=== PATIENT | female | born 1960 | race Caucasian/White ===

== ENCOUNTER 2019-04-23 14:33 | Emergency (ER) | payer OTHER ==
[2019-04-23 14:47] VITALS: BMI 23.3
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
[2019-04-23 18:59] VITALS: BP 152/98; PULSE 86; TEMP 98.1
== END 2019-04-23 19:03 | disposition home or self-care (01) ==
LOC: JER 14:33
DX: M54.2 Cervicalgia (principal); M25.512 Pain in left shoulder; V49.49XA Driver injured in collision with other motor vehicles in traffic accident, initial encounter; W22.11XA Striking against or struck by driver side automobile airbag, initial encounter; Y92.414 Local residential or business street as the place of occurrence of the external cause; Y93.89 Activity, other specified; Y99.8 Other external cause status
CPT/HCPCS: 70450-TC; 72125-TC; 73030-TC-LT-FY; 73140-TC-LT-FY; 99281-25

== ENCOUNTER 2022-05-01 04:23 | Day surgery (SDC) | payer OTHER ==
[2022-04-30 09:23] VITALS: BMI 26.2
[2022-05-01] MEDS ORDERED: SIMETHICONE 40 MG/0.6 ML BOTTLE ONE (10:28)
[2022-05-01 14:20] VITALS: TEMP 98.4
[2022-05-01 14:27] VITALS: BP 104/61; PULSE 76; RESP 19
== END 2022-05-01 10:20 | disposition home or self-care (01) ==
LOC: JASU-ENDO 04:23
PROVIDERS: ATTEND Internal Medicine Gastroenterology
PROC: 0DJD8ZZ Inspection of Lower Intestinal Tract, Via Natural or Artificial Opening Endoscopic (ICD-10-PCS; principal; 2022-05-01 08:45)
DX: Z12.11 Encounter for screening for malignant neoplasm of colon (principal); K62.89 Other specified diseases of anus and rectum; K64.8 Other hemorrhoids

== ENCOUNTER 2022-05-25 19:26 | Emergency (ER) | payer OTHER ==
[2022-05-25 19:37] VITALS: BP 147/86; PULSE 107; RESP 18; TEMP 99; BMI 25.2
== END 2022-05-25 20:18 | disposition home or self-care (01) ==
LOC: FER 19:26
DX: K59.00 Constipation, unspecified (principal)
CPT/HCPCS: 99281-25